=== PATIENT | female | born 1960 | race Caucasian/White ===

== ENCOUNTER 2018-03-20 05:20 | Emergency (ER) | payer SELFPAY ==
[~2018-03-20] VITALS: Ht 167.6 cm; Wt 79.4 kg
[2018-03-20] MEDS ORDERED: SODIUM CHLORIDE 0.9% 1,000 ML IVB ONE (06:44)
[2018-03-20] MEDS ORDERED: MECLIZINE HCL 25 MG TAB PO ONE (06:45)
[2018-03-20 07:04] LABS: Basophils # (auto) 0 uL; Eosinophils # (auto) 0 uL; Eosinophils % (auto) 0.1 % (0.0-7.0); Monocytes # (auto) 0.5 uL; White Blood Cell 7.5 10^3/uL (4.4-10.8)
[2018-03-20 07:05] LABS: Basophils % (auto) 0.6 % (0.0-2.0); Hematocrit 41.8 % (36.0-46.0); Hemoglobin 14.5 g/dL (12.2-16.2); Lymphocytes # (auto) 0.6 uL; Lymphocytes % (auto) 8.2 % (10.0-50.0); Mean Corpuscular Hgb Conc. 34.6 g/dL (32.0-36.0); Mean Corpuscular Volume 118.4 fL (80.0-100.0); Monocytes % (auto) 6.8 % (0.0-12.0); Neutrophils # (auto) 6.3 uL; Neutrophils % (auto) 84.3 % (37.0-80.0); Nucleated Red Blood Cells % 0.2 %; Platelet Count (auto) 202 10^3/uL (140-450); Red Blood Cells 3.53 10^6/uL (4.0-5.20); Red Cell Distribution Width 14.2 % (11.8-14.3)
[2018-03-20 07:22] LABS: Albumin 2.4 g/dL (3.4-5.0); BUN/Creatinine Ratio 6.1; Calcium 7.2 mg/dL (8.5-10.1); Potassium 3.3 mmol/L (3.5-5.1)
[2018-03-20 07:24] LABS: Bilirubin, Total 0.9 mg/dL (0.2-1.0); Total Protein 5.5 g/dL (6.4-8.2)
[2018-03-20] MEDS ORDERED: PROMETHAZINE HCL 25 MG/ML 1ML IV ONE (09:30)
[2018-03-20 09:52] VITALS: BP 114/77
[2018-03-20 10:58] LABS: Urine Bacteria NONE SEEN /hpf (None Seen); Urine Blood Negative /uL (Negative); Urine Hyaline Cast MOD /lpf (0 - 2); Urine Mucus FEW (None Seen); Urine Specific Gravity 1.022 (1.001-1.035); Urine WBC 2 /hpf (0 - 5)
[2018-03-20] MEDS ORDERED: POTASSIUM EFFERVESENT TAB 25 MEQ PO ONE (11:00)
[2018-03-20 11:13] LABS: Amphetamine Screen, Urine NEGATIVE (NEGATIVE); Barbiturate Scree,Urine NEGATIVE (NEGATIVE); Benzodiazephine Screen, Urine POSITIVE (NEGATIVE); Cannabinoid Screen, Urine NEGATIVE (NEGATIVE); Cocaine Screen, Urine NEGATIVE (NEGATIVE); Opiate Scree,Urine NEGATIVE (NEGATIVE); Phencyclidine Screen, Urine NEGATIVE (NEGATIVE)
== END 2018-03-20 13:13 | disposition home or self-care (01) ==
LOC: ER 05:28
DX: K29.20 Alcoholic gastritis without bleeding (principal); E87.6 Hypokalemia; E46 Unspecified protein-calorie malnutrition; R94.5 Abnormal results of liver function studies; F13.10 Sedative, hypnotic or anxiolytic abuse, uncomplicated; F17.210 Nicotine dependence, cigarettes, uncomplicated; M19.90 Unspecified osteoarthritis, unspecified site
CPT/HCPCS: 36415; 80053; 80307; 80320; 81001; 82150; 83690; 83735; 84443; 85025; 93005; 96361; 96374; 99285; J2550; J7030; J8597

== ENCOUNTER 2019-09-20 10:19 | Inpatient (IN) | payer MEDICAID, OTHER ==
[~2019-09-20] VITALS: Ht 160 cm; Wt 70.0 kg
[2019-09-20] MEDS ORDERED: LORazepam 2MG/ML-1ML VIAL ONE (10:29)
[2019-09-20] MEDS ORDERED: ACCU-CHEK COMFORT CURVE STRIP VI ONE (10:45)
[2019-09-20 11:16] LABS: Basophils # (auto) 0 10 ^3/uL (0-0.2); Basophils % (auto) 0.2 % (0.0-2.0); Eosinophils # (auto) 0 10 ^3/uL (0-0.8); Eosinophils % (auto) 0.2 % (0.0-7.0); Hematocrit 41.1 % (36.0-46.0); Hemoglobin 13.2 g/dL (12.2-16.2); Lymphocytes # (auto) 0.8 10 ^3/uL (0.4-5.4); Mean Corpuscular Hemoglobin 31.3 pg (28.0-32.0); Mean Corpuscular Hgb Conc. 32.1 g/dL (32.0-36.0); Mean Corpuscular Volume 97.5 fL (80.0-100.0); Monocytes # (auto) 0.5 10 ^3/uL (0-1.3); Neutrophils # (auto) 14.9 10 ^3/uL (1.6-8.6); Neutrophils % (auto) 91.6 % (37.0-80.0); Nucleated Red Blood Cells % 0.1 %; Platelet Count (auto) 319 10^3/uL (140-450); Red Blood Cells 4.21 10^6/uL (4.0-5.20); Red Cell Distribution Width 13.8 % (11.8-14.3); White Blood Cell 16.2 10^3/uL (4.4-10.8)
[2019-09-20 11:18] LABS: Urine Bacteria NONE SEEN /hpf (None Seen); Urine Blood Negative /uL (Negative); Urine Hyaline Cast FEW /lpf (0 - 2); Urine Specific Gravity 1.012 (1.001-1.035); Urine WBC <1 /hpf (0 - 5)
[2019-09-20 11:30] LABS: Albumin 3.1 g/dL (3.4-5.0); Calcium 7.9 mg/dL (8.5-10.1); Potassium 3.2 mmol/L (3.5-5.1)
[2019-09-20] MEDS ORDERED: LORazepam 2MG/ML-1ML VIAL IV ONE (11:30)
[2019-09-20] MEDS ORDERED: PROMETHAZINE HCL 25 MG/ML 1ML IV ONE (11:30)
[2019-09-20] MEDS ORDERED: HYDROmorphone HCL 2 MG/ML VL IV ONE ×2 (11:30→15:00)
[2019-09-20 11:33] LABS: BUN/Creatinine Ratio 16.9; Bilirubin, Total 0.4 mg/dL (0.2-1.0); Total Protein 6.8 g/dL (6.4-8.2)
[2019-09-20] MEDS ORDERED: MIDAZOLAM HCL 5 MG/ML-1ML VIAL IV ONE (13:30)
[2019-09-20] MEDS ORDERED: ETOMIDATE (2MG/ML) 20ML VIAL IV ONE (13:30)
[2019-09-20] MEDS ORDERED: POTASSIUM EFFERVESENT TAB 25 MEQ PO ONE (14:30)
[2019-09-20] MEDS ORDERED: MORPHINE SULF INJ 2 MG/ML SYRINGE 1ML IV PRN (14:30)
[2019-09-20] MEDS ORDERED: POTASSIUM CHL 20MEQ/100ML 100 ML IV ONE (14:30)
[2019-09-20] MEDS ORDERED: MAGNESIUM SULFATE 1GM/100ML 100 ML IV ONE (14:30)
[2019-09-20] MEDS ORDERED: CALCIUM CHL 100MG/ML 1,000 MG in D5W 5% 100 ML IV ONE (14:30)
[2019-09-20] MEDS ORDERED: NITROGLYCERIN 0.4 MG SL TAB SL PRN ×2 (14:30→15:00)
[2019-09-20] MEDS ORDERED: ALUM & MAG HYDROX-SIMETH LIQ(MAALOX) 30 ML PO ONE (15:00)
[2019-09-20] MEDS: SOD CHL 0.9%/ KCL 40MEQ 1,000 ML IV SCH (15:00)
[2019-09-20] MEDS ORDERED: LORazepam 2MG/ML-1ML VIAL IV PRN (15:00)
[2019-09-20] MEDS ORDERED: ONDANSETRON HCL 4 MG/2 ML VIAL IV PRN (15:00)
[2019-09-20] MEDS ORDERED: SODIUM CHLORIDE 0.9% 1,900 ML IV ONE (15:00)
[2019-09-20] MEDS ORDERED: metroNIDAZOLE 500MG/100ML 100 ML IV ONE (15:00)
[2019-09-20] MEDS ORDERED: LORazepam 0.5 MG TAB PO PRN (15:00)
[2019-09-20] MEDS ORDERED: cefTRIAXone 1GM/50ML D5W 50 ML IV ONE (15:00)
[2019-09-20] MEDS ORDERED: DEXTROSE (50%) 50ML SYRG IV PRN (15:15)
[2019-09-20] MEDS ORDERED: FAMOTIDINE (10MG/ML) 2ML VL IV ONE (15:15)
[2019-09-20] MEDS ORDERED: cloNIDine HCL 0.1 MG TAB PO PRN (15:15)
[2019-09-20] MEDS ORDERED: PANTOPRAZOLE 40 MG/10 ML VIAL INJ IV ONE (15:45)
[2019-09-20] MEDS: InsuLIN REG 1unit/0.01ml Soln (100units/ml) SC SCH ×2 (17:00→21:51)
[2019-09-20 17:22] VITALS: BP 137/89
[2019-09-20] MEDS: ACCU-CHEK COMFORT CURVE STRIP VI SCH ×2 (17:29→21:51)
--- NOTE | 2019-09-20 18:00 | NUR ---
CAME ON BED FROM ER, LETHARGIC BUT ALERT AND ORIENT X4, NOT IN DISTRESS, CLEAR LS IN BILATERAL LS, RR=18 SAT=97% IN RA, DEEP BREATHING AND COUGHING ENCOURAGED, VERBALIZED UNDERSTANDING, DENIED SOB AND CP, SR R=76 ON TELE MONITOR, ABDOMEN SOFT WITH ACTIVE BS, LAST BM=09/19/19 REPORTED, MUNOZ CATH IN PLACE AND PATENT, DRAINING CLEAR YELLOW URINE, RT. ARM POST FRACTURE REDUCTION COVERED WITH DRY AND INTACT DRESSING, ABLE TO WIGGLE FINGERS, RADIAL PULSE PALPABLE, CAP REFILL <3 SECONDS, RT. UPPER AND LOWER EXTREMITIES WEAKNESS NOTED, GENERAL SKIN INTACT WARM TO TOUCH, C/O PAIN L=8/10 NORCO PO WAS GIVEN, RESTING ON BED, VS T=98.2 RR=18 SAT=97% P=76 BO=898/86, BEDPAN PROVIDED REQUESTED, HEAD OF BED ELEVATED, BED ON LOW POSITION, RAILS UP X2, CALL LIGHT ON REACH, WILL CONTINUE MONITORING.
[2019-09-20] MEDS: HYDROcodone-ACET 5/325MG TAB PO PRN (18:24)
[2019-09-20 18:27] VITALS: BP 137/89
--- NOTE | 2019-09-20 19:00 | NUR ---
Opening Shift Note Assumed care of patient, patient is asleep and needs to be reoriented constantly. No S/S of distress/SOB, patient complains of pain but unable to stay awake to say where pain is coming from. Patient had right arm fracture reduction 09/19. Instructed on POC and to call for assist PRN, will continue to monitor for changes Q1hr and PRN. Patient under seizure protocol with padding on bed rails. Bed rails up x3. Will continue to monitor patient.
--- NOTE | 2019-09-20 19:49 | NUR ---
CONTINUE ON BED KEATING, NO BM NOTED, PAIN L=5/10 REPORTED, MAJORITY INITIAL ASSESSMENT WAS DONE, REFUSED COOPERATION TO COMPLEAT ANSWER ASSESSMENT QUESTIONS, WILL BE COMPLETED BY LICENSING DIRECTOR RN REPORTED, REPORT WAS GIVEN TO THE LICENSING DIRECTOR RN.
[2019-09-20 20:00] VITALS: BP 137/94
[2019-09-20 22:00] VITALS: BP 137/94
[2019-09-20] MEDS ORDERED: metroNIDAZOLE 500MG/100ML 100 ML IV SCH (22:00)
[2019-09-20] MEDS: FAMOTIDINE (10MG/ML) 2ML VL IV SCH (22:33)
[2019-09-20] MEDS: CLINDAMYCIN 600MG IV 50 ML IV SCH (22:33)
[2019-09-20] MEDS: METOPROLOL TARTRATE 25 MG TAB PO SCH (22:35)
--- NOTE | 2019-09-21 01:00 | NUR ---
IV removal- right ankle IV DC'd with clean sterile technique, catheter fully intact. Pressure dressing applied to site. Patient tolerated well.
[2019-09-21] MEDS: HYDROcodone-ACET 5/325MG TAB PO PRN ×4 (04:28→23:17)
[2019-09-21] MEDS: SOD CHL 0.9%/ KCL 40MEQ 1,000 ML IV SCH ×2 (04:33→17:40)
[2019-09-21 05:00] VITALS: BP 140/90
[2019-09-21 05:53] LABS: Basophils # (auto) 0.1 10 ^3/uL (0-0.2); Basophils % (auto) 0.8 % (0.0-2.0); Eosinophils # (auto) 0.5 10 ^3/uL (0-0.8); Eosinophils % (auto) 6.2 % (0.0-7.0); Hematocrit 34.8 % (36.0-46.0); Hemoglobin 11.7 g/dL (12.2-16.2); Lymphocytes # (auto) 0.8 10 ^3/uL (0.4-5.4); Lymphocytes % (auto) 10.5 % (10.0-50.0); Mean Corpuscular Hemoglobin 32.6 pg (28.0-32.0); Mean Corpuscular Hgb Conc. 33.8 g/dL (32.0-36.0); Mean Corpuscular Volume 96.4 fL (80.0-100.0); Monocytes # (auto) 0.5 10 ^3/uL (0-1.3); Monocytes % (auto) 6.4 % (0.0-12.0); Neutrophils # (auto) 5.6 10 ^3/uL (1.6-8.6); Neutrophils % (auto) 76.1 % (37.0-80.0); Platelet Count (auto) 257 10^3/uL (140-450); Red Cell Distribution Width 13.7 % (11.8-14.3); White Blood Cell 7.3 10^3/uL (4.4-10.8)
[2019-09-21 06:15] LABS: Albumin 2.4 g/dL (3.4-5.0); Calcium 7.4 mg/dL (8.5-10.1); Magnesium 1.8 mg/dL (1.6-2.6); Potassium 3.2 mmol/L (3.5-5.1)
[2019-09-21 06:19] LABS: % Iron Saturation 26.8 % (15-50)
[2019-09-21 06:23] LABS: Bilirubin, Total 0.4 mg/dL (0.2-1.0); CRP High Sensitivity 1.86 mg/dL (< 0.3); INR 3.69 (0.9-1.15); Phosphorus 2.4 mg/dL (2.5-4.90); Total Protein 5.4 g/dL (6.4-8.2)
[2019-09-21 06:29] LABS: Ferritin 46.2 ng/mL (10-322); Prolactin 28.76 ng/mL (2.8-29.2)
[2019-09-21 06:30] LABS: Folate (Folic Acid) 9.37 ng/mL (5.38-24)
[2019-09-21] MEDS: CLINDAMYCIN 600MG IV 50 ML IV SCH ×3 (06:38→22:06)
[2019-09-21] MEDS: ACCU-CHEK COMFORT CURVE STRIP VI SCH ×4 (06:39→22:07)
[2019-09-21] MEDS: InsuLIN REG 1unit/0.01ml Soln (100units/ml) SC SCH ×4 (06:39→22:00)
[2019-09-21 09:00] VITALS: BP 133/86
[2019-09-21] MEDS: cefTRIAXone 1GM/50ML D5W 50 ML IV SCH (09:39)
[2019-09-21] MEDS: ENOXAPARIN SOD 40 MG/0.4 ML SYRINGE SC SCH (09:40)
[2019-09-21] MEDS: METOPROLOL TARTRATE 25 MG TAB PO SCH ×2 (09:40→22:07)
[2019-09-21] MEDS: ASPirin 81 mg TAB PO SCH (09:41)
[2019-09-21] MEDS: POTASSIUM EFFERVESENT TAB 25 MEQ PO SCH (09:41)
[2019-09-21] MEDS: DOCUSATE SOD 100 MG CAP PO SCH (09:41)
[2019-09-21] MEDS: FAMOTIDINE (10MG/ML) 2ML VL IV SCH ×2 (10:00→22:00)
[2019-09-21 13:00] VITALS: BP 149/96
[2019-09-21 17:00] VITALS: BP 130/88
--- NOTE | 2019-09-21 19:00 | NUR ---
Opening Shift Note Assumed care of patient, patient was sleeping. No S/S of distress/SOB. Patient stated that she had pain in her right arm. Intsructed on POC and to call for assist PRN, will continue to monitor for changes Q1hr and PRN. Patient in the lowest possible position with bed rails up x2 and call light within reach. Patient to have a neuro consult.
[2019-09-21 20:00] VITALS: BP 155/95
[2019-09-21 22:00] VITALS: BP 155/95
--- NOTE | 2019-09-21 22:00 | NUR ---
Dr. Mullins at bedside.
[2019-09-21] MEDS: levETIRAcetam 500 MG TAB PO SCH (22:06)
[2019-09-21] MEDS: ATORVASTATIN 20 MG TAB PO SCH (22:06)
[2019-09-22] VITALS (8 sets, daily range): BP systolic 137–162; BP diastolic 68–92
[2019-09-22 03:07] LABS: RPR Non Reactive (Non Reactive)
[2019-09-22] MEDS: CLINDAMYCIN 600MG IV 50 ML IV SCH ×3 (06:30→22:38)
[2019-09-22] MEDS: ACCU-CHEK COMFORT CURVE STRIP VI SCH ×4 (06:30→22:00)
[2019-09-22] MEDS: InsuLIN REG 1unit/0.01ml Soln (100units/ml) SC SCH ×4 (06:31→22:00)
--- NOTE | 2019-09-22 08:51 | NUR ---
Opening Shift Note Assumed care of patient, awake and alert. No S/S of distress/SOB or pain. Instructed on POC and to call for assist PRN. Bed at lowest locked position and call light within reach. Will continue to monitor for changes Q1hr and PRN.
[2019-09-22] MEDS: SOD CHL 0.9%/ KCL 40MEQ 1,000 ML IV SCH ×2 (09:00→22:38)
[2019-09-22] MEDS: METOPROLOL TARTRATE 25 MG TAB PO SCH ×2 (09:56→22:39)
[2019-09-22] MEDS: ENOXAPARIN SOD 40 MG/0.4 ML SYRINGE SC SCH (09:56)
[2019-09-22] MEDS: ASPirin 81 mg TAB PO SCH (09:57)
[2019-09-22] MEDS: cefTRIAXone 1GM/50ML D5W 50 ML IV SCH (09:57)
[2019-09-22] MEDS: CITALOPRAM HYDROBR 20 MG TAB PO SCH (09:57)
[2019-09-22] MEDS: DOCUSATE SOD 100 MG CAP PO SCH (09:57)
[2019-09-22] MEDS: levETIRAcetam 500 MG TAB PO SCH ×2 (09:57→22:39)
[2019-09-22] MEDS: POTASSIUM EFFERVESENT TAB 25 MEQ PO SCH (10:00)
[2019-09-22] MEDS: FAMOTIDINE (10MG/ML) 2ML VL IV SCH ×2 (10:00→22:00)
[2019-09-22] MEDS: HYDROcodone-ACET 5/325MG TAB PO PRN ×3 (10:36→22:42)
[2019-09-22 10:37] LABS: Basophils # (auto) 0.1 10 ^3/uL (0-0.2); Basophils % (auto) 1.5 % (0.0-2.0); Eosinophils # (auto) 0.9 10 ^3/uL (0-0.8); Hemoglobin 12.7 g/dL (12.2-16.2); Lymphocytes # (auto) 0.9 10 ^3/uL (0.4-5.4); Lymphocytes % (auto) 9.8 % (10.0-50.0); Mean Corpuscular Hemoglobin 32.4 pg (28.0-32.0); Mean Corpuscular Hgb Conc. 33.6 g/dL (32.0-36.0); Mean Corpuscular Volume 96.4 fL (80.0-100.0); Monocytes # (auto) 0.5 10 ^3/uL (0-1.3); Monocytes % (auto) 5.1 % (0.0-12.0); Neutrophils # (auto) 6.8 10 ^3/uL (1.6-8.6); Neutrophils % (auto) 73.6 % (37.0-80.0); Nucleated Red Blood Cells % 0.1 %; Platelet Count (auto) 254 10^3/uL (140-450); Red Blood Cells 3.94 10^6/uL (4.0-5.20); Red Cell Distribution Width 13.5 % (11.8-14.3); White Blood Cell 9.2 10^3/uL (4.4-10.8)
[2019-09-22 11:08] LABS: BUN/Creatinine Ratio 17.3; Calcium 7.3 mg/dL (8.5-10.1); Potassium 4.2 mmol/L (3.5-5.1)
--- NOTE | 2019-09-22 11:36 | NUR ---
Pain reassessment Patient states pain went down to 3/10, patient is comfortable, will continue to monitor PRN.
[2019-09-22] MEDS ORDERED: CITA-77 PO (15:23)
[2019-09-22] MEDS ORDERED: KEP500T PO (15:23)
[2019-09-22] MEDS ORDERED: AMLO10TA13 PO (15:28)
--- NOTE | 2019-09-22 16:00 | NUR ---
Dr. Mullins at bedside.
--- NOTE | 2019-09-22 16:10 | NUR ---
Patient had a BM. Patient cleaned, pt tolerated well. Complete bed linen change.
--- NOTE | 2019-09-22 19:00 | NUR ---
Opening Shift Note Assumed care of patient, awake and alert. No S/S of distress/SOB. Patient complains of pain in her right arm. Patient is able to move her legs, but her left arm is still not moving much. Patients right hand has increased swelling. IV to be stopped and removed. Will evaluate site. Instructed on POC and to call for assist PRN, will continue to monitor for changes Q1hr and PRN.
--- NOTE | 2019-09-22 19:13 | NUR ---
CLOSING SHIFT Patient is comfortably resting in bed, on 2L NC, breath sounds even and unlabored. No c/o pain, no s/s of distress noted/stated. Bed at lowest locked position and call light within reach. Care endorsed to TINO Gonzalez RN. Addendum: 09/22/19 at 1919 by Suzette Montez RN * patient on room air, saturating at 94%. No s/s of distress/sob noted stated.
--- NOTE | 2019-09-22 20:28 | NUR ---
IV removal IV DC'd with clean sterile technique, catheter fully intact. Pressure dressing applied to site. Patient tolerated well. Patients right wrist 20 g was removed due to swelling in her right had. Elevated hand and will apply ice. Will continue to monitor patient.
--- NOTE | 2019-09-22 20:45 | NUR ---
MD came up, evaluated patients hand, stated that he felt the radial pulse, and to continue with ice and monitor patient. Will inform of any changes as necessary. Will continue to monitor patient as ordered.
[2019-09-22] MEDS: ATORVASTATIN 20 MG TAB PO SCH (22:39)
[2019-09-23] VITALS (8 sets, daily range): BP systolic 144–171; BP diastolic 68–94
[2019-09-23] MEDS: CLINDAMYCIN 600MG IV 50 ML IV SCH ×2 (05:47→14:28)
[2019-09-23] MEDS: HYDROcodone-ACET 5/325MG TAB PO PRN ×3 (05:48→19:59)
[2019-09-23] MEDS: ACCU-CHEK COMFORT CURVE STRIP VI SCH ×4 (06:32→22:16)
[2019-09-23] MEDS: InsuLIN REG 1unit/0.01ml Soln (100units/ml) SC SCH ×4 (06:33→22:00)
--- NOTE | 2019-09-23 06:51 | NUR ---
Closing note Patient asleep, in the lowest possible position with bed rails up x2 and call light within reach. Will endorse to day shift RN.
[2019-09-23] MEDS: SOD CHL 0.9%/ KCL 40MEQ 1,000 ML IV SCH (09:40)
[2019-09-23] MEDS: cefTRIAXone 1GM/50ML D5W 50 ML IV SCH (09:41)
[2019-09-23] MEDS: POTASSIUM EFFERVESENT TAB 25 MEQ PO SCH (09:42)
[2019-09-23] MEDS: levETIRAcetam 500 MG TAB PO SCH ×2 (09:42→22:11)
[2019-09-23] MEDS: CITALOPRAM HYDROBR 20 MG TAB PO SCH (09:42)
[2019-09-23] MEDS: ASPirin 81 mg TAB PO SCH (09:42)
[2019-09-23] MEDS: DOCUSATE SOD 100 MG CAP PO SCH (09:42)
[2019-09-23] MEDS: METOPROLOL TARTRATE 25 MG TAB PO SCH ×2 (09:43→22:11)
[2019-09-23] MEDS: ENOXAPARIN SOD 40 MG/0.4 ML SYRINGE SC SCH (09:43)
--- NOTE | 2019-09-23 09:48 | NUR ---
Right hand Patient's right hand shows swelling and mild weeping from two small areas, radial pulse is present, capillary refill is less than 3 and patient is able to wiggle fingers. Will notify MD. Will continue to monitor PRN.
[2019-09-23] MEDS: FAMOTIDINE (10MG/ML) 2ML VL IV SCH ×2 (10:00→22:00)
--- NOTE | 2019-09-23 11:13 | NUR ---
Updated Agatha , patient's daughter on plan of care.
--- NOTE | 2019-09-23 11:15 | NUR ---
Paged front office attendant case management manager regarding orders for social secretary. Addendum: 09/23/19 at 1243 by Suzette Montez RN spoke to Oralia HOWARD She will call me back once she has looked up patient in her laptop. Awaiting call back.
--- NOTE | 2019-09-23 12:00 | NUR ---
Patient had a BM. Patient cleaned, pt tolerated well. Complete bed linen change.
--- NOTE | 2019-09-23 12:56 | NUR ---
Dr. Ceballos at bedside. MD aware/informed of increased swelling in the right hand. Per MD Dr. Hartman, from ortho to see patient today.
--- NOTE | 2019-09-23 13:42 | NUR ---
Physical Therapy Patient Ambulated to restroom with walker and PT.
--- NOTE | 2019-09-23 14:30 | NUR ---
Social service consult. Per Oralia CASILLAS, patient does not qualify for home health/SNF due to insurance. aware.
--- NOTE | 2019-09-23 14:31 | NUR ---
Ponce catheter dc'd Order to discontinue Ponce catheter. Ponce dc'd with clean technique following deflation of balloon. Patient tolerated well with no complaints of pain. Continue care.
--- NOTE | 2019-09-23 16:38 | NUR ---
Paged Dr. Ceabllos regarding patients results for right elbow x-ray. informed/aware.
[2019-09-23] MEDS ORDERED: IBUPROFEN 400 MG TAB PO ONE (17:15)
--- NOTE | 2019-09-23 18:26 | NUR ---
Assisted patient with eating dinner.
[2019-09-23 18:29] LABS: INR 1.93 (0.9-1.15)
--- NOTE | 2019-09-23 19:26 | NUR ---
closing note Patient is comfortably sitting up in bed on room air, no c/o pain, no s/s of distress/sob noted. Bed at lowest locked position and call light within reach . Care endorsed to BONIFACIO Templeton.
--- NOTE | 2019-09-23 19:59 | NUR ---
Opening Shift Note Assumed care of patient, awake and alert. No S/S of distress/SOB. Pain aching to her right arm 01/14. circulation assessed. 2+pluse bilateral pulses upper extremities. Cast in place to right arm. Patient mediated per protocol see emar. Patient reported she was able to urinate, no distention noted. Instructed on POC and to call for assist PRN, Patient consents not signed as MD has not spoken with patient of procedure. will continue to monitor for changes Q1hr and PRN. seizure and fall precautions in place.
--- NOTE | 2019-09-23 20:59 | NUR ---
pain reassessment patient sleeping
[2019-09-23] MEDS: ATORVASTATIN 20 MG TAB PO SCH (22:11)
--- NOTE | 2019-09-23 22:26 | NUR ---
patient assisted in using bedpan. 2ooml of urine output yellow
--- NOTE | 2019-09-23 23:11 | NUR ---
INFORMED PATIENT SHE IS TO BE NPO AT MIDNIGHT FOR SCHEDULED PROCEDURE. PATIENT WORRIED ASKING QUESTIONS OF PROCEDURE AND TYPES OF COMPLICATIONS. COMFORT MEASURES PROVIDED TO PATIENT. INFORMED PATIENT MD WILL NEED TO TALK TO PATIENT ABOUT SCHEDULED PROCEDURE AND COMPLICATIONS. WILL ENDORSE CARE TO DAYSHIFT RN TO NOTIFY MD TO SPEAK WITH PATIENT.
--- NOTE | 2019-09-24 05:06 | NUR ---
patient reporting pain 8/10 to her right arm. OBJECT ORIENTED DEVELOPER hanny notified of patient prn of norco po and informed him of patient procedure. orders received for one time order of Toradol 15mg iv times one. orders read back and verified by OBJECT ORIENTED DEVELOPER
[2019-09-24] MEDS ORDERED: KETOROLAC TROMETH 15 mg/ml 1ML VL IV ONE (05:15)
[2019-09-24] MEDS ORDERED: KETOROLAC TROMETH 30 MG/ML 1ML VIAL ONE (05:28)
[2019-09-24 05:39] VITALS: BP 160/62
[2019-09-24 06:00] LABS: Basophils # (auto) 0 10 ^3/uL (0-0.2); Basophils % (auto) 0.4 % (0.0-2.0); Eosinophils # (auto) 0.9 10 ^3/uL (0-0.8); Eosinophils % (auto) 10.5 % (0.0-7.0); Hematocrit 37.1 % (36.0-46.0); Hemoglobin 12.5 g/dL (12.2-16.2); Lymphocytes # (auto) 0.8 10 ^3/uL (0.4-5.4); Lymphocytes % (auto) 9.7 % (10.0-50.0); Mean Corpuscular Hemoglobin 32.4 pg (28.0-32.0); Mean Corpuscular Hgb Conc. 33.8 g/dL (32.0-36.0); Mean Corpuscular Volume 95.8 fL (80.0-100.0); Monocytes # (auto) 0.5 10 ^3/uL (0-1.3); Monocytes % (auto) 6.1 % (0.0-12.0); Neutrophils % (auto) 73.3 % (37.0-80.0); Platelet Count (auto) 287 10^3/uL (140-450); Red Blood Cells 3.87 10^6/uL (4.0-5.20); Red Cell Distribution Width 13.5 % (11.8-14.3); White Blood Cell 8.2 10^3/uL (4.4-10.8)
[2019-09-24 06:18] LABS: BUN/Creatinine Ratio 11.1; Calcium 7.7 mg/dL (8.5-10.1)
--- NOTE | 2019-09-24 06:36 | NUR ---
patient reports 8/10 pain to her right shoulder. patient medicated per protocol. primer charger solomon made aware of medication ordered by OCC THER prior to scheduled surgery.
[2019-09-24] MEDS: ACCU-CHEK COMFORT CURVE STRIP VI SCH ×2 (06:45→11:53)
[2019-09-24] MEDS: InsuLIN REG 1unit/0.01ml Soln (100units/ml) SC SCH ×2 (06:45→11:30)
[2019-09-24] MEDS ORDERED: LIDOCAINE 1% HCL (LOCAL ANESTH.) INJ 20ML MDV ONE (06:54)
[2019-09-24] MEDS ORDERED: BUPIVACAINE 0.25% INJ 50ML VIAL ONE (06:54)
--- NOTE | 2019-09-24 07:09 | NUR ---
PATIENT BECAME ANXIOUS SHE WAS INFORMED SHE WILL BE TAKEN DOWN TO SURGERY REQUESTING TO NOT GO DOWN UNTIL MD SPEAKS TO HER ABOUT SURGERY SHE IS UNAWARE. INFORMED RN PREOP NURSE JUAN CARLOS AND ALSO INFORMED JUAN CARLOS THAT 15MG IV TORADOL WAS GIVEN FOR PAIN AT 0636. PER JUAN CARLOS VALDOVINOS SHE WILL CALL ME BACK
--- NOTE | 2019-09-24 07:09 | NUR ---
MD RAYMUNDO AT BEDSIDE TO SPEAK WITH PATIENT.
[2019-09-24] MEDS ORDERED: ONDANSETRON HCL 4 MG/2 ML VIAL ONE (07:30)
[2019-09-24] MEDS ORDERED: MIDAZOLAM HCL 1MG/1ML-2 ML VIAL ONE (07:30)
[2019-09-24] MEDS ORDERED: PROPOFOL 10 MG/ML 20 ML IV ONE (07:30)
[2019-09-24] MEDS ORDERED: fentaNYL CITRATE 100 MCG/2 ML VL ONE (07:30)
[2019-09-24] MEDS ORDERED: SODIUM CHLORIDE LOCK 10 ML ONE (07:30)
--- NOTE | 2019-09-24 07:32 | NUR ---
PATIENT TAKEN DOWN TO SURGERY WITH REPORTS OF NO PAIN DISTRESS OR SOB. PROCEDURE WAS EXPLAINED TO PATIENT AND DAUGHTER BY MD RAYMUNDO. PATIENT AND DAUGHTER VERBALIZED UNDERSTANDING AND HAD NO FURTHER QUESTIONS. ELDON VALDOVINOS AND CELIA RN JULIA SIGNED CONSENT WITNESSES WITH PERMISSION OF DAUGHTER MANUEL PATIENT HAS PERIODS OF CONFUSION. rEPORT GIVEN TO ESTRELLA SHAH
[2019-09-24 07:50] LABS: INR 1.8 (0.9-1.15); Partial Thromboplastin Time 37.1 sec (23.64-32.05)
[2019-09-24 08:00] VITALS: BP 153/91
[2019-09-24] MEDS ORDERED: ONDANSETRON HCL 4 MG/2 ML VIAL IV PRN (08:00)
[2019-09-24] MEDS ORDERED: MORPHINE SULFATE 4 MG/ML SYR/VIAL IV PRN (08:00)
[2019-09-24] MEDS ORDERED: HYDROmorphone HCL 2 MG/ML VL IV PRN (08:00)
[2019-09-24 09:00] VITALS: BP 153/91
[2019-09-24] MEDS: FAMOTIDINE (10MG/ML) 2ML VL IV SCH ×2 (10:00→21:38)
[2019-09-24] MEDS: DOCUSATE SOD 100 MG CAP PO SCH (10:00)
[2019-09-24] MEDS: LACTATED RINGER'S 1,000 ML IV SCH ×2 (10:10→17:49)
[2019-09-24] MEDS: ASPirin 81 mg TAB PO SCH (10:10)
[2019-09-24] MEDS: levETIRAcetam 500 MG TAB PO SCH ×2 (10:10→21:37)
[2019-09-24] MEDS: CITALOPRAM HYDROBR 20 MG TAB PO SCH (10:10)
[2019-09-24] MEDS: HYDROcodone-ACET 5/325MG TAB PO PRN ×3 (10:10→23:39)
[2019-09-24] MEDS: METOPROLOL TARTRATE 25 MG TAB PO SCH ×2 (10:11→21:37)
[2019-09-24 13:00] VITALS: BP 154/93
--- NOTE | 2019-09-24 14:25 | NUR ---
Patient currently walking with Physical Therapy.
[2019-09-24 17:00] VITALS: BP 151/83
--- NOTE | 2019-09-24 17:37 | NUR ---
PAIN Patient is c/o right elbow pain, 12/14, will medicate per MD order.
--- NOTE | 2019-09-24 19:11 | NUR ---
Opening Shift Note Assumed care of patient, awake and alert. No S/S of distress/SOB or pain. Dressing is clean dry and intact. Right arm is in a sling,splint/cast. patient is able to wiggle fingers, bilateral radial pulses palpable, capillary refill less than 3seconds. Patient educated per md orders non-weight bearing on her right arm, keep in splint at all times, and keep sling next to body. Patient verbalized understanding. Instructed on POC and to call for assist PRN, will continue to monitor for changes Q1hr and PRN. fall precautions in place and seizure precautions in place. bed in low position and call light within reach.
[2019-09-24] MEDS: ATORVASTATIN 20 MG TAB PO SCH (21:37)
[2019-09-24 22:00] VITALS: BP 158/95
--- NOTE | 2019-09-24 22:00 | NUR ---
report from salon sales consultant temp 99.2 temp recheck 98.5. patient denies sob distress or pain. patient site is c/d/i. splint and sling in place patient reeducated on md orders for caring of right arm. patient verbalized understanding.
--- NOTE | 2019-09-24 23:39 | NUR ---
pain 7/10 to right arm. patient medicated per protocol see emar
--- NOTE | 2019-09-25 00:39 | NUR ---
pain reassessment patient sleeping shows no signs of distress or sob
[2019-09-25 05:00] VITALS: BP 161/84
[2019-09-25] MEDS: HYDROcodone-ACET 5/325MG TAB PO PRN ×3 (05:51→17:52)
--- NOTE | 2019-09-25 05:51 | NUR ---
pain8/10 to right arm patient medicated per protocol see emar
[2019-09-25] MEDS: LACTATED RINGER'S 1,000 ML IV SCH ×2 (05:52→13:49)
--- NOTE | 2019-09-25 06:56 | NUR ---
patient rounds patient is in bed watching tv. no signs of sob distress or pain. fall and seizure precautions in place. sling/cast/splint in place to right arm. right arm circulation assessed pulses palpable , capillary refill less than 3, patient able to wiggle fingers. patient iv is patent running lr 100ml denies pain at site. bed in low position and call light within reach
--- NOTE | 2019-09-25 07:10 | NUR ---
OPENING SHIFT NOTE ASSUMED CARE OF PATIENT FROM CORPORATE RISK ANALYST RN JULIA. PATIENT IS AWAKE AND ALERT X4. INSTRUCTED PATIENT ON POC, PATIENT VERBALIZED UNDERSTANDING. BED IS IN LOWEST POSITION WITH SIDE RAILS RAISED X2, BED WHEELS LOCKED, AND CALL LIGHT IS WITHIN REACH. WILL CONTINUE TO MONITOR.
--- NOTE | 2019-09-25 07:44 | NUR ---
REPORT GIVEN TO DAYSHIFT RN PATIENT DENIES SOB DISTRESS OR PAIN
--- NOTE | 2019-09-25 08:40 | NUR ---
Weekend pharmacy innovation assistant 09/23/19-I received a page from nurse Villela letting me know that there is an order for SNF for this patient-per family request. I let Tika know that patient has straight medi-bruce and does not have coverage for SNF or home health. Per nurse Villela, Dr. Ceballos is holding discharge until seen by ben TAYLOR.
[2019-09-25 09:00] VITALS: BP 140/93
--- NOTE | 2019-09-25 09:33 | NUR ---
PHYSICAL THERAPY AT BEDSIDE
[2019-09-25] MEDS: levETIRAcetam 500 MG TAB PO SCH (09:46)
[2019-09-25] MEDS: ASPirin 81 mg TAB PO SCH (09:46)
[2019-09-25] MEDS: CITALOPRAM HYDROBR 20 MG TAB PO SCH (09:46)
[2019-09-25] MEDS: METOPROLOL TARTRATE 25 MG TAB PO SCH (09:48)
[2019-09-25] MEDS: DOCUSATE SOD 100 MG CAP PO SCH (10:00)
[2019-09-25] MEDS: FAMOTIDINE (10MG/ML) 2ML VL IV SCH (10:57)
[2019-09-25 12:47] VITALS: BP 150/89
--- NOTE | 2019-09-25 13:00 | NUR ---
DR. DODD AT BEDSIDE UPDATED MD ON PATIENT'S STATUS, MD IS AWARE AND ORDERED PATIENT TO BE TRANSFERRED TO [facility]. INFORMED LICENSED MARRIAGE AND FAMILY THERAPIST GLENIS AND SHE WILL UPDATE ME ON BED ASSIGNMENT.
--- NOTE | 2019-09-25 15:02 | NUR ---
assessment Patient is a 59 year old female who is alert and oriented. Patients cognitive abilities are intact. Prior to admission patient lived home alone and functioned independently. Patient informed me she is able to care for her own ADLs. Per patient she fell at home. Patient will need rehab. Patient has a ss consult for discharge to [facility]. Heather CALDERON will satisfy order. Patient agrees to [facility]. I informed patient she has a right to speak to a manager social regarding all care. I informed patient she has a right to participate in any and all discharge planning. Patient does not have a POA and advanced directive. I have offered patient information on POA and advanced directives. I informed the patient the advantages and benefits of having an Advanced Directive. Patient verbalized understanding and agreed to discharge plan. Addendum: 09/25/19 at 1508 by Ana SOLIS Amended: Links added.
--- NOTE | 2019-09-25 15:16 | NUR ---
Nutrition Assessment Notes Please refer to link for detailed Nutrition Assessment Notes Est Energy needs: [id number] kcals (20-23 kcal/kgBW) Est Protein needs: 56-70 gms/day (0.8-1.0 gm/kgBW) Will continue to monitor and followup prn. Addendum: 09/25/19 at [address] Amended: Links added.
--- NOTE | 2019-09-25 15:46 | NUR ---
INFORMED DAUGHTER MANUEL OF POC AND INFORMED HER THAT THEY WOULD HAVE TO TRANSPORT PATIENT ONCE BED IS ASSIGNED.
--- NOTE | 2019-09-25 16:46 | NUR ---
D/C Planning Per SS consult for [facility] acute with [facility]. Faxed clinical information to [facility]. Pending on acceptance.
--- NOTE | 2019-09-25 16:52 | NUR ---
RECEIVED CALL FROM JORI NAGY'S DIVISION FIELD INSPECTOR FOR BED ASSIGNMENT PATIENT [id number]. PHONE NUMBER FOR REPORT
--- NOTE | 2019-09-25 17:00 | NUR ---
INFORMED DAUGHTER MANUEL OF BED ASSIGNMENT. PER MANUEL SHE WILL CALL ME BACK WHEN SHE IS GOING TO TRANSPORT THE PATIENT.
--- NOTE | 2019-09-25 17:06 | NUR ---
CALLED TO GIVE REPORT TO JORI NAGY'S NURSE. NURSE WAS UNAVAILABLE FOR REPORT AT THIS TIME. PER FARMWORKER GENERAL, RN WILL CALL ME BACK FOR REPORT.
--- NOTE | 2019-09-26 08:41 | NUR ---
D/C planning Nurse fulfill the order after hours on 09/25/2019.
== END 2019-09-25 18:35 | DRG 342 ==
LOC: ER 10:19 → EDBD 10:19 → TELE 10:20 → TELE-WESTW 15:43 → TELE 15:46 → TELE-WESTW 17:34
PROVIDERS: ADMIT Hospitalist; ATTEND Internal Medicine Nephrology
PROC: 0RSLXZZ Reposition Right Elbow Joint, External Approach (ICD-10-PCS; principal; 2019-09-20)
DX: S53.124A Posterior dislocation of right ulnohumeral joint, initial encounter (principal); F05 Delirium due to known physiological condition; E44.1 Mild protein-calorie malnutrition; S52.041A Displaced fracture of coronoid process of right ulna, initial encounter for closed fracture; G40.409 Other generalized epilepsy and epileptic syndromes, not intractable, without status epilepticus; I69.354 Hemiplegia and hemiparesis following cerebral infarction affecting left non-dominant side; S52.121A Displaced fracture of head of right radius, initial encounter for closed fracture; E66.9 Obesity, unspecified; E87.6 Hypokalemia; I10 Essential (primary) hypertension; F32.9 Major depressive disorder, single episode, unspecified; F17.200 Nicotine dependence, unspecified, uncomplicated; F41.1 Generalized anxiety disorder; Z79.82 Long term (current) use of aspirin; Z79.899 Other long term (current) drug therapy; Z81.8 Family history of other mental and behavioral disorders; Z82.49 Family history of ischemic heart disease and other diseases of the circulatory system; Z68.27 Body mass index [BMI] 27.0-27.9, adult; Z88.2 Allergy status to sulfonamides; W18.39XA Other fall on same level, initial encounter; Y93.89 Activity, other specified; Y92.098 Other place in other non-institutional residence as the place of occurrence of the external cause; Y99.8 Other external cause status
CPT/HCPCS: 36415; 70450; 71045; 73070; 73080; 73200; 76000; 80048; 80053; 80061; 81001; 82085; 82550; 82607; 82728; 82746; 82962; 83036; 83540; 83550; 83615; 83735; 83880; 84100; 84146; 84443; 84702; 85025; 85045; 85610; 85730; 86141; 86592; 86850; 86900; 86901; 93005; 96365; 96367; 96375; 97116; 97163; 97530; 99152; A4565; C9113; G0378; J0696; J1885; J2001; J2250; J2405; J2704; J3480; J3490; J7060